=== PATIENT | female | born 1980 | race Caucasian/White ===

== ENCOUNTER 2017-01-29 20:11 | Emergency (ER) | payer MEDICAID, SELFPAY ==
--- NOTE | 2017-01-29 20:55 | EDM.PDOC ---
ED HPI GENERAL MEDICAL PROBLEM - General Chief Complaint: Drug or Alcohol Abuse Stated Complaint: [facility] Time Seen by Provider: 01/29/17 20:26 Source of Information: Reports: Patient, EMS History Limitations: Reports: No Limitations - History of Present Illness INITIAL COMMENTS - FREE TEXT/NARRATIVE: This is a 36-year-old female. She was found at home we believed by her mother unresponsive. The ambulance was called around 7:44 PM and the police arrived on the scene first and she was locked in the bathroom and the door was opened and they pulled her out unresponsive. When the ambulance arrived they noted that she had agonal respirations and she was purple her pulse ox was 65% on room air. When they began to bag her she woke up and then they use nor can nasally. The patient states she injected heroin 10 mL and apparently was a combination of heroin and fentanyl. When she was brought to the ER she was fully awake and coherent. The patient states that she does have an addiction problem. Apparently she has a court ordered drug monitoring patch on her right flank. She states she wants help she wants to talk to someone. She has a problem with pain pills as well as illegal drugs. This is been going on for many years according to the patient. She has obvious track lorenz on her arms and I believe even on her lower extremities and there are areas of cellulitis noted at these sites. She denies any fever or chills denies any cough or congestion she's had no nausea vomiting or diarrhea. Treatments PARALEGAL SECRETARY: Reports: Other (see below) Other Treatments PARALEGAL SECRETARY: narcan by ambulance Headache Pain Score (Numeric/FACES): 7 - Related Data Allergies Allergy/AdvReac Type Severity Reaction Status Date / Time No Known Allergies Allergy Verified 08/07/16 12:42 Home Meds: Home Meds Excedrin 2 tab PO DAILY 01/29/17 [History] cloNIDine HCl [Catapres] 0.1 mg PO DAILY 01/29/17 [History] Cephalexin [Keflex] 500 mg PO QID #28 capsule 01/30/17 [Rx] Past Medical History Cardiovascular History: Reports: Hypertension Other OB/BYN History: IUD in place Psychiatric History: Reports: Addiction, Anxiety, Depression Oncologic (Cancer) History: Reports: Hodgkin's Lymphoma - Infectious Disease History Infectious Disease History: Reports: Hepatitis C Other Infectious Disease History: inactive Social & Family History - Family History Family Medical History: Noncontributory - Tobacco Use Smoking Status *Q: Current Every Day Smoker Years of Tobacco use: 12 Packs/Tins Daily: 0.3 Used Tobacco, but Quit: No Second Hand Smoke Exposure: No - Caffeine Use Caffeine Use: Reports: Coffee Caffeine Use Comment: one soda per day - Alcohol Use Days Per Week of Alcohol Use: 0 Number of Drinks Per Day: 0 Total Drinks Per Week: 0 - Recreational Drug Use Recreational Drug Use: Yes Drug Use in Last 12 Months: Yes Recreational Drug Type: Reports: Dilaudid, Fentanyl, Heroin, Methamphetamine, Oxycodone, Vicodin Recreational Drug Use Frequency: Daily Recreational Drug Last Use: 4-16 ED ROS GENERAL - Review of Systems Review Of Systems: See Below Constitutional: Denies: Fever, Chills HEENT: Reports: No Symptoms Respiratory: Denies: Shortness of Breath, Wheezing Cardiovascular: Denies: Chest Pain Endocrine: Reports: No Symptoms GI/Abdominal: Denies: Abdominal Pain, Nausea, Vomiting : Denies: Discharge, Dysuria Musculoskeletal: Reports: Other (Track lorenz are noted) Skin: Reports: Other (She does have areas with the track lorenz appear to have cellulitis especially in the right lower extremity) Neurological: Reports: Other (Recent altered mental status). Denies: Confusion , Headache Psychiatric: Reports: Anxiety, Mood Lability, Other (She was crying initially when she came to the ER but she is not now ) - Physical Exam Exam: See Below Exam Limited By: No Limitations General Appearance: Alert, WD/WN, No Apparent Distress Eye Exam: Bilateral Eye: Normal Inspection Ears: Normal External Exam, Normal Canal, Normal TMs Nose: Normal Inspection Throat/Mouth: Normal Inspection, Normal Lips, Normal Oropharynx, Normal Voice, No Airway Compromise Head Exam: Normocephalic Neck: Supple Respiratory/Chest: No Respiratory Distress, Lungs Clear, Normal Breath Sounds Cardiovascular: Regular Rate, Rhythm, No Murmur, Tachycardia GI/Abdominal: Soft, Non-Tender Neuro Exam (Abbreviated): Alert, Oriented, CN II-XII Intact, Normal Cognition, No Motor/Sensory Deficits Back Exam: Full Range of Motion Extremities: Other (This patient has multiple track lorenz on her arms as well as her legs, inner right thigh she has several areas that look like they were injection sites that might be developing abscesses but not fully at this time though they are little areas of infection, in her right lower leg she has a 13 x 15 cm patch of cellulitis down the front of her leg into her ankle area, in the left thigh there is no injection sites noted but she does in the left lower leg have a 8 cm x 24 cm cellulitis extending from the mid lateral side of the calf and wraps around the leg to the medial malleolus on that left ankle. There does not appear to be any cellulitis of her upper extremities at this time.) Psychiatric: Normal Affect, Normal Mood Skin Exam: Warm, Dry Course - Vital Signs Last Recorded V/S: Last Vital Signs Temp 97.1 F 01/29/17 20:17 Pulse 103 H 01/29/17 22:00 Resp 16 01/29/17 22:00 BP 137/85 01/29/17 20:45 Pulse Ox 93 L 01/29/17 21:15 - Orders/Labs/Meds Labs: Laboratory Tests 01/29/17 01/29/17 01/29/17 Range/Units 21:06 21:06 23:20 WBC 16.30 H (3.98-10.04) K/mm3 RBC 4.49 (3.98-5.22) M/mm3 Hgb 12.7 (11.2-15.7) gm/L Hct 37.8 (34.1-44.9) % MCV 84.2 (79.4-94.8) fl MCH 28.3 (25.6-32.2) pg MCHC 33.6 (32.2-35.5) g/dl RDW Std Deviation 41.0 (36.4-46.3) fL Plt Count 325 (182-369) K/mm3 MPV 9.1 L (9.4-12.3) fl Neut % (Auto) 79.1 H (34.0-71.1) % Lymph % (Auto) 11.0 L (19.3-51.7) % Hubbard % (Auto) 6.6 (4.7-12.5) % Eos % (Auto) 2.6 (0.7-5.8) Baso % (Auto) 0.2 (0.1-1.2) % Neut # (Auto) 12.88 H (1.56-6.13) K/mm3 Lymph # (Auto) 1.80 (1.18-3.74) K/mm3 Hubbard # (Auto) 1.07 H (0.24-0.36) K/mm3 Eos # (Auto) 0.43 H (0.04-0.36) K/mm3 Baso # (Auto) 0.04 (0.01-0.08) K/mm3 Sodium 136 (136-145) mEq/L Potassium 4.1 (3.5-5.1) mEq/L Chloride 100 (98-107) mEq/L Carbon Dioxide 28 (21-32) mEq/L Anion Gap 12.1 (5-15) BUN 13 (7-18) mg/dL Creatinine 0.9 (0.55-1.02) mg/dL Est Cr Clr Drug Dosing 88.85 mL/min Estimated GFR (MDRD) > 60 (>60) mL/min BUN/Creatinine Ratio 14.4 (14-18) Glucose 88 (74-106) mg/dL Calcium 9.1 (8.5-10.1) mg/dL Total Bilirubin 0.7 (0.2-1.0) mg/dL AST 26 (15-37) U/L ALT 29 (14-59) U/L Alkaline Phosphatase 107 (46-116) U/L Total Protein 7.4 (6.4-8.2) g/dl Albumin 3.0 L (3.4-5.0) g/dl Globulin 4.4 gm/dL Albumin/Globulin Ratio 0.7 L (1-2) Urine Color Yellow (Yellow) Urine Appearance Slt cloudy H (Clear) Urine pH 5.5 (5.0-8.0) Ur Specific [place]oms > or = 1.030 (1.005-1.030) Urine Protein 2+ H (Negative) Urine Glucose (UA) Negative (Negative) Urine Ketones Negative (Negative) Urine Occult Blood 1+ H (Negative) Urine Nitrite Negative (Negative) Urine Bilirubin Negative (Negative) Urine Urobilinogen 0.2 (0.2-1.0) Ur Leukocyte Esterase 1+ H (Negative) Urine RBC 5-10 H (0-5) /hpf Urine WBC 40-50 H (0-5) /hpf Ur Epithelial Cells 5-10 H (0-5) /hpf Urine Bacteria Many H (FEW) /hpf Urine Mucus Moderate H (FEW) /hpf Urine HCG, Qual (NEGATIVE) Urine Opiates Screen (NEGATIVE) Ur Buprenorphine Scrn (NEGATIVE) Ur Oxycodone Screen (NEGATIVE) Urine Methadone Screen (NEGATIVE) Ur Propoxyphene Screen (NEGATIVE) Ur Barbiturates Screen (NEGATIVE) Ur Tricyclics Screen (NEGATIVE) Ur Phencyclidine Scrn (NEGATIVE) Ur Amphetamine Screen (NEGATIVE) U Methamphetamines Scrn (NEGATIVE) U Benzodiazepines Scrn (NEGATIVE) U Cocaine Metab Screen (NEGATIVE) U Marijuana (THC) Screen (NEGATIVE) 01/29/17 01/29/17 Range/Units 23:20 23:20 WBC (3.98-10.04) K/mm3 RBC (3.98-5.22) M/mm3 Hgb (11.2-15.7) gm/L Hct (34.1-44.9) % MCV (79.4-94.8) fl MCH (25.6-32.2) pg MCHC (32.2-35.5) g/dl RDW Std Deviation (36.4-46.3) fL Plt Count (182-369) K/mm3 MPV (9.4-12.3) fl Neut % (Auto) (34.0-71.1) % Lymph % (Auto) (19.3-51.7) % Hubbard % (Auto) (4.7-12.5) % Eos % (Auto) (0.7-5.8) Baso % (Auto) (0.1-1.2) % Neut # (Auto) (1.56-6.13) K/mm3 Lymph # (Auto) (1.18-3.74) K/mm3 Hubbard # (Auto) (0.24-0.36) K/mm3 Eos # (Auto) (0.04-0.36) K/mm3 Baso # (Auto) (0.01-0.08) K/mm3 Sodium (136-145) mEq/L Potassium (3.5-5.1) mEq/L Chloride (98-107) mEq/L Carbon Dioxide (21-32) mEq/L Anion Gap (5-15) BUN (7-18) mg/dL Creatinine (0.55-1.02) mg/dL Est Cr Clr Drug Dosing mL/min Estimated GFR (MDRD) (>60) mL/min BUN/Creatinine Ratio (14-18) Glucose (74-106) mg/dL Calcium (8.5-10.1) mg/dL Total Bilirubin (0.2-1.0) mg/dL AST (15-37) U/L ALT (14-59) U/L Alkaline Phosphatase (46-116) U/L Total Protein (6.4-8.2) g/dl Albumin (3.4-5.0) g/dl Globulin gm/dL Albumin/Globulin Ratio (1-2) Urine Color (Yellow) Urine Appearance (Clear) Urine pH (5.0-8.0) Ur Specific [place] (1.005-1.030) Urine Protein (Negative) Urine Glucose (UA) (Negative) Urine Ketones (Negative) Urine Occult Blood (Negative) Urine Nitrite (Negative) Urine Bilirubin (Negative) Urine Urobilinogen (0.2-1.0) Ur Leukocyte Esterase (Negative) Urine RBC (0-5) /hpf Urine WBC (0-5) /hpf Ur Epithelial Cells (0-5) /hpf Urine Bacteria (FEW) /hpf Urine Mucus (FEW) /hpf Urine HCG, Qual Negative (NEGATIVE) Urine Opiates Screen Presumptive positive H (NEGATIVE) Ur Buprenorphine Scrn Negative (NEGATIVE) Ur Oxycodone Screen Negative (NEGATIVE) Urine Methadone Screen Negative (NEGATIVE) Ur Propoxyphene Screen Negative (NEGATIVE) Ur Barbiturates Screen Negative (NEGATIVE) Ur Tricyclics Screen Negative (NEGATIVE) Ur Phencyclidine Scrn Negative (NEGATIVE) Ur Amphetamine Screen Presumptive positive H (NEGATIVE) U Methamphetamines Scrn Presumptive positive H (NEGATIVE) U Benzodiazepines Scrn Presumptive positive H (NEGATIVE) U Cocaine Metab Screen Negative (NEGATIVE) U Marijuana (THC) Screen Negative (NEGATIVE) Meds: Medications Discontinued Medications Generic Name Dose Route Start Last Admin Trade Name Freq PRN Reason Stop Dose Admin Acetaminophen 650 mg 01/29/17 21:21 01/29/17 21:27 Tylenol PO 01/29/17 21:22 650 mg NOW ONE Administration Ceftriaxone Sodium 1 gm/ 0 gm 01/29/17 23:45 01/30/17 00:40 Lidocaine HCl 2.1 ml IM 1 inj Q24H NICHOLAS Administration - Re-Assessments/Exams Free Text/Narrative Re-Assessment/Exam: 08/12/17 23:54 The patient has been stable since she arrived to the ER alert and oriented. She has an appointment to see the [facility] and she states she will call them. She is noted to have multiple positives on a urine drug screen. She is also has a cellulitis in her lower extremities as well as a urinary tract infection for which we'll treat her. I have encouraged her to follow up with [facility] as well as her family doctor. She understands that she almost tonight from injecting heroin and fentanyl and she has no desire to and she wants help. She knows all she has to do is call [facility] because they know her and will help her. Departure - Departure Time of Disposition: 00:02 Disposition: Home, Self-Care 01 Condition: Fair Clinical Impression: Drug abuse, IV, Cellulitis of right lower leg, Left leg cellulitis, Narcotic- induced respiratory depression, Hypoxemia Urinary tract infection Qualifiers: Urinary tract infection type: acute cystitis Hematuria presence: without hematuria Qualified Code(s): N30.00 - Acute cystitis without hematuria Accidental overdose of heroin Qualifiers: Encounter type: initial encounter Qualified Code(s): T40.1X1A - Poisoning by heroin, accidental (unintentional), initial encounter Accidental fentanyl overdose Qualifiers: Encounter type: initial encounter Qualified Code(s): T40.4X1A - Poisoning by other synthetic narcotics, accidental (unintentional), initial encounter - Discharge Information Prescriptions: Cephalexin [Keflex] 500 mg PO QID #28 capsule Instructions: Drug Overdose Referrals: Yogesh Rangel MD [Primary Care Provider] - Forms: ED Department Discharge Additional Instructions: The patient has called her ex- who is a responsible individual to come and pick her up, she is to call the [facility] on Tuesday for follow -up from this ER visit and additional treatment for her addictions, she again states she does not want to hurt herself she just wants treatment for her addictions, follow with the ER as needed
[2017-01-29] MEDS ORDERED: Acetaminophen 325 MG Tab PO ONE (21:21)
[2017-01-29 22:56] VITALS: BP 137/85
[2017-01-29] MEDS ORDERED: cefTRIAXone 1 GM, Lidocaine 1% 2.1 ML IM SCH ×2 (23:45)
== END 2017-01-30 02:22 | disposition home or self-care (01) ==
LOC: JD.ED 20:11 → SUPCPDRO 20:11 → JD.ED 01-30 02:22
DX: T40.1X1A Poisoning by heroin, accidental (unintentional), initial encounter (principal); L03.116 Cellulitis of left lower limb; L03.115 Cellulitis of right lower limb; F19.10 Other psychoactive substance abuse, uncomplicated; N39.0 Urinary tract infection, site not specified; I10 Essential (primary) hypertension; F41.9 Anxiety disorder, unspecified; F32.9 Major depressive disorder, single episode, unspecified; F17.210 Nicotine dependence, cigarettes, uncomplicated; Z79.899 Other long term (current) drug therapy
CPT/HCPCS: 36415; 80053; 80306; 81001; 81025; 85025; 96372; 99285; A9270; J0696; 99284